=== PATIENT | female | born 2000 | race African-American/Black ===

== ENCOUNTER 2023-06-18 17:24 | Emergency (ER) | payer SELFPAY ==
[~2023-06-18] VITALS: Ht 162.6 cm; Wt 52.0 kg
[2023-06-18 17:29] VITALS: O2SAT 97
[2023-06-18 17:55] LABS: CLARITY URINE CLEAR (CLEAR); COLOR URINE YELLOW (YELLOW); GLUCOSE URINE NEGATIVE (NEGATIVE); KETONES URINE NEGATIVE (NEGATIVE); LEUKOCYTE ESTERASE URINE NEGATIVE (NEGATIVE); NITRITE URINE NEGATIVE (NEGATIVE); OCCULT BLOOD URINE 3+ (NEGATIVE); PH URINE 8.5 (4.5-8.0); PROTEIN URINE NEGATIVE (NEGATIVE); SPECIFIC GRAVITY URINE 1.014 (1.005-1.030); UROBILINOGEN URINE 0.2 E.U./dL (0.2-1.0)
[2023-06-18 18:00] LABS: BASOPHILS % 0.8 % (0.0-2.0); EOSINOPHILS % 1.7 % (0.0-5.0); HEMATOCRIT. 35.6 % (36.0-48.0); HEMOGLOBIN. 11.6 g/dL (12.0-16.0); LYMPHOCYTES % 29.3 % (20.0-50.0); MEAN CORPUSCULAR HGB CONC 32.7 g/dL (31.0-37.0); MEAN PLATELET VOLUME 8.8 fl (7.4-10.4); MONOCYTES % 5.7 % (2.0-8.0); NEUTROPHILS % 62.5 % (40.0-76.0); PLATELET 297 x1000/uL (130-400); RED BLOOD CELL COUNT 4.01 mill/uL (4.2-5.4); WHITE BLOOD COUNT 5.4 x1000/uL (4.5-11.0)
[2023-06-18 18:04] LABS: CHLORIDE 105 mEq/L (98-107); POTASSIUM 3.9 mEq/L (3.5-5.1); SODIUM 135 mEq/L (136-145)
[2023-06-18 18:05] LABS: CARBON DIOXIDE 23 mEq/L (21-32)
[2023-06-18 18:06] LABS: CALCIUM 10.2 mg/dL (8.7-10.4)
[2023-06-18 18:10] LABS: CREATININE 0.8 mg/dL (0.6-1.0); GLUCOSE 81 mg/dL (70-105); UREA NITROGEN BLOOD 7 mg/dL (9-23)
[2023-06-18 18:12] LABS: B-HCG QUANTITATIVE 271 mIU/mL (<3)
[2023-06-18 18:20] LABS: BACTERIA URINE TRACE; RBC URINE 50-100 /hpf (0-2); SQUAMOUS EPITHELIAL CELL URINE 1+ /lpf (RARE/1+); WBC URINE NONE SEEN /hpf (0-2)
[2023-06-18] MEDS ORDERED: NITR-87 MT (21:01)
[2023-06-18 21:10] VITALS: BP 129/85; PULSE 72; RESP 20; TEMP 98.2
== END 2023-06-18 21:10 | disposition home or self-care (01) ==
LOC: ER 17:24
DX: O46.91 Antepartum hemorrhage, unspecified, first trimester (principal); O23.31 Infections of other parts of urinary tract in pregnancy, first trimester; Z3A.01 Less than 8 weeks gestation of pregnancy
CPT/HCPCS: 36415; 76801; 80048; 81003; 81025; 84702; 85025; 86850; 86900; 99284

== ENCOUNTER 2024-03-12 18:00 | Emergency (ER) | payer OTHER ==
[~2024-03-12] VITALS: Ht 170.2 cm; Wt 50.0 kg
[~2024-03-12 18:00] MED LIST: NITR-87 MT; NITR100C MT
[2024-03-12 18:01] VITALS: TEMP 36.9; O2SAT 98
[2024-03-12 19:52] VITALS: BP 115/71; PULSE 84; RESP 18; O2SAT 98
== END 2024-03-12 19:52 | disposition left against medical advice (07) ==
LOC: ER 18:00
DX: F10.129 Alcohol abuse with intoxication, unspecified (principal); Z88.0 Allergy status to penicillin; Y90.9 Presence of alcohol in blood, level not specified
CPT/HCPCS: 99283